=== PATIENT | male | born 1990 | race Caucasian/White ===

== ENCOUNTER 2017-08-09 05:23 | Emergency (ER) | payer SELFPAY ==
[2017-08-09 05:25] VITALS: BP 133/86; PULSE 66; RESP 16; TEMP 97.5; O2SAT 100
[2017-08-09] MEDS ORDERED: IBUP1TAB7 PO (05:51)
[2017-08-09] MEDS ORDERED: AMOX875T PO (05:51)
--- NOTE | 2017-08-09 05:51 | PD ---
HPI Chief Complaint: Oral / Dental Pain or Problem Time Seen by Provider: 05:37 Travel History International Travel<30 days: No Contact w/Intl Traveler<30days: No Traveled to known affect area: No History of Present Illness HPI Patient is a 26-year-old male presenting to the emergency room for evaluation of left lower tooth pain and left sinus pressure. Patient states he suffers from chronic sinusitis. His symptoms started yesterday with a headache/facial pain that started suddenly and then resolved spontaneously within 30 minutes. He states he woke up this morning at 3 AM experiencing the same pain. He took ibuprofen 1 hour prior to arrival which is alleviated the pain. Patient denies any fevers, visual changes, weakness, facial drooping. Symptom onset is sudden , symptoms are moderate, intermittent in nature. No known exacerbating factors. [facility] Past Medical History Medical History: Denies Significant Hx Diminished Hearing: No Past Surgical History Surgical History: No Previous Surgery Social History Alcohol Use: No Tobacco Use: Yes Substance Use: No Allergies-Medications (Allergen,Severity, Reaction): Coded Allergies: No Known Allergies (Unverified , 08/09/17) Review of Systems Except as stated in HPI: all other systems reviewed are Neg HENT: Positive: Headaches, Congestion, Other (Facial pain) Physical Exam Narrative GENERAL: Well-developed, well-nourished, alert male. Presenting in no acute distress. SKIN: Warm and dry. HEAD: Normocephalic. No tenderness over maxillary or ethmoid sinuses. EARS: Bilateral pinnae and external canals appear within normal limits. Bilateral tympanic membranes without erythema, dullness or perforation. MOUTH: Mucous membranes moist, no lesions, tongue and gums appear normal. EYES: No scleral icterus. No injection or drainage. Extraocular movements are intact. NECK: Supple, trachea midline. No JVD or lymphadenopathy. CARDIOVASCULAR: Regular rate and rhythm without murmurs, gallops, or rubs. RESPIRATORY: Breath sounds equal bilaterally. No accessory muscle use. GASTROINTESTINAL: Abdomen soft, non-tender, nondistended. MUSCULOSKELETAL: No cyanosis, or edema. No crepitus or popping sensation noted on palpation of the TMJ bilaterally. BACK: Nontender without obvious deformity. No CVA tenderness. Data Data Last Documented VS Vital Signs Date Time Temp Pulse Resp B/P (MAP) Pulse Ox O2 Delivery O2 Flow Rate FiO2 08/09/17 05:25 97.5 66 16 133/86 (102) 100 [facility] Medical Decision Making Medical Screen Exam Complete: Yes Emergency Medical Condition: Yes Interpretation(s) Vital Signs Date Time Temp Pulse Resp B/P (MAP) Pulse Ox O2 Delivery O2 Flow Rate FiO2 08/09/17 05:25 97.5 66 16 133/86 (102) 100 Differential Diagnosis Otitis media versus sinusitis versus neuralgia versus TMJ versus dentalgia Narrative Course Patient is a well-appearing 26-year-old male presenting to the emergency department for evaluation of headache/facial pain/tooth pain. Patient has no focal deficits on exam. Patient's vital signs are stable, pain was alleviated with 600 mg ibuprofen the patient took at home prior to arrival. Included in the differential would be sinusitis, TMJ as patient does grind his teeth. Patient does not have any dental caries in the area of pain. There is no edema to the gums. Patient was encouraged to continue conservative management with ibuprofen, he was encouraged to obtain [id number] Nasonex or Flonase since he does have a history of chronic sinusitis and does feel congested. He will be given a prescription for antibiotic however he was encouraged to trial watchful waiting. Patient verbalized understanding of instructions. Patient is stable for discharge per Diagnosis Primary Impression: Sinusitis Qualified Codes: J32.9 - Chronic sinusitis, unspecified Referrals: [facility] Primary Care Physician Patient Instructions: General Instructions, Sinusitis (ED), Temporomandibular Disorder (ED) Additional Instructions: Follow-up with your primary doctor or at the [facility] Trial conservative management with [id number] Nasonex or Flonase Take ibuprofen as needed and as directed for pain If you begin antibiotic complete full course even if you begin to feel better Return to emergency department for any new or worsening symptoms Med/Other Pt SpecificInfo: Prescription(s) given Scripts Amoxicillin (Amoxicillin) 875 Mg Tab 875 MG PO BID for Infection for 10 Days, #20 TAB 0 Refills Prov: Nguyen Cassidy 08/09/17 Ibuprofen (Ibuprofen) 800 Mg Tab 800 MG PO Q6HR Y for PAIN, #40 TAB 0 Refills Prov: Nguyen Cassidy 08/09/17 Disposition: 01 DISCHARGE HOME Condition: Stable Nguyen Cassidy August 09, 2017 05:51
== END 2017-08-09 06:09 | disposition home or self-care (01) ==
LOC: NEPD 05:23
DX: J32.9 Chronic sinusitis, unspecified (principal); Z72.0 Tobacco use
CPT/HCPCS: 99283